=== PATIENT | male | born 1990 | race Hispanic/Latino ===

== ENCOUNTER 2016-11-05 17:15 | Inpatient (IN) | payer MEDICARE ==
[~2016-11-05 17:15] MED LIST: ATIVAN ONE
[2016-11-05] MEDS ORDERED: ATIVAN IV ONE (17:18)
[2016-11-05] MEDS ORDERED: NACL 0.9% 1000 ML 1,000 ML IV ONE (17:18)
[2016-11-05 17:44] LABS: Urine Drugs of Abuse Note Disclamer
--- NOTE | 2016-11-05 17:51 | Emergency Department Report ---
ED General Adult HPI - General Chief complaint: Altered Mental Status Stated complaint: SEIZURE Time Seen by Provider: 11/05/16 17:17 Source: patient Mode of arrival: Wheelchair Limitations: No Limitations - History of Present Illness Initial comments: 25-year-old male presents to the emergency department via private vehicle after possible seizure. Patient was found in the car to be unresponsive with agonal respirations. She was immediately brought back to the exam room. Patient was arousable and states he does not know what happened to him. He states he has been taking his prescribed medicine and denies taking any other medication. There are no other complaints. -: Sudden, This afternoon - Related Data Allergies Allergy/AdvReac Type Severity Reaction Status Date / Time Sulfa (Sulfonamide Allergy Anaphylaxis Verified 11/05/16 17:16 Antibiotics) ED Review of Systems ROS: Stated complaint: SEIZURE Other details as noted in HPI Comment: Unobtainable due to pts medical conditions (altered mental status) ED Past Medical Hx - Past Medical History Previous Medical History?: Yes Hx Seizures: Yes Additional medical history: TBI 2008 - Surgical History Past Surgical History?: Yes Additional Surgical History: brain 2009. trach 2009 - Social History Smoking Status: Never Smoker Substance Use Type: None ED Physical Exam - General Limitations: No Limitations General appearance: lethargic - Head Head exam: Present: normocephalic, other (Healed surgical scars noted to right forehead and temporal region) - Eye Eye exam: Present: normal appearance, PERRL, EOMI - ENT ENT exam: Present: normal exam, normal orophraynx, mucous membranes moist - Neck Neck exam: Present: full ROM, other (old tracheostomy scar noted). Absent: tenderness - Respiratory Respiratory exam: Present: normal lung sounds bilaterally. Absent: respiratory distress - Cardiovascular Cardiovascular Exam: Present: normal rhythm, tachycardia, normal heart sounds - GI/Abdominal GI/Abdominal exam: Present: soft, normal bowel sounds. Absent: distended, tenderness - Extremities Exam Extremities exam: Present: normal inspection, full ROM. Absent: tenderness - Back Exam Back exam: Present: normal inspection, full ROM. Absent: tenderness - Neurological Exam Neurological exam: Present: alert, oriented X3. Absent: motor sensory deficit - Skin Skin exam: Present: warm, dry, intact ED Course Vital Signs 11/05/16 11/05/16 11/05/16 17:15 17:16 17:45 Temperature 97.9 F Pulse Rate 115 H 116 H 107 H Respiratory 10 L 10 L Rate Blood Pressure 143/92 Blood Pressure 145/85 [Left] O2 Sat by Pulse 97 95 97 Oximetry 11/05/16 19:36 Temperature Pulse Rate 102 H Respiratory 16 Rate Blood Pressure Blood Pressure 126/88 [Left] O2 Sat by Pulse 99 Oximetry - Reevaluation(s) Reevaluation #1: 11/05/16 17:50 Patient was initially given 2 mg of IV Ativan. No further seizure activity has been noted as yet. Obtaining labs and head CT. Will monitor and reassess. Reevaluation #2: 11/05/16 19:49 Additional history obtained from family via phone shows that the patient had been using heroin earlier today. Lab and imaging results been reviewed. Patient continues to require supplemental oxygen. On room air the patient will desaturate to 89%. Patient will be admitted by the hospitalist. ED Medical Decision Making - Lab Data Result diagrams: 11/05/16 18:00 11/05/16 18:00 - EKG Data -: EKG Interpreted by Me EKG shows normal: sinus rhythm, axis, intervals, ST-T waves Rate: tachycardia - EKG Data When compared to previous EKG there are: previous EKG unavailable Interpretation: normal EKG (incomplete RBBB) - Radiology Data Radiology results: report reviewed, image reviewed CT of the brain shows right cerebral encephalomalacia with ventriculostomy drain. No acute intracranial abnormality noted. - Differential Diagnosis seizure, ICH, drug use Critical care attestation.: If time is entered above; I have spent that time in minutes in the direct care of this critically ill patient, excluding procedure time. ED Disposition Clinical Impression: Hypoxia Accidental drug overdose Qualifiers: Encounter type: initial encounter Qualified Code(s): T50.901A - Poisoning by unspecified drugs, medicaments and biological substances, accidental ( unintentional), initial encounter Disposition: OP ADMITTED IP TO THIS HOSP Is pt being admited?: Yes Condition: Stable Referrals: PRIMARY CARE, [Primary Care Provider] - 3-5 Days Time of Disposition: 19:51
[2016-11-05 17:54] LABS: Bilirubin,Urine NEG (Negative); Blood,Urine NEG (Negative); Ketones,Urine NEG (Negative); Leukocyte Esterase,Urine NEG (Negative); Mucus,Urine FEW /HPF; Nitrite,Urine NEG (Negative); Urobilinogen,Urine < 2.0 mg/dL (<2.0)
[2016-11-05 18:09] LABS: Basophils % (Auto) 0.2 % (0.0-1.8); Eosinophils % (Auto) 0.2 % (0.0-4.3); Hemoglobin 15.5 gm/dl (11.8-15.2); Mean Corpuscular HGB Conc 33 % (32-34); Mean Corpuscular Hemoglobin 32 pg (28-32); Mean Corpuscular Volume 97 fl (84-94); Platelet Count 277 K/mm3 (140-440); Red Blood Count 4.87 M/mm3 (3.65-5.03); Red Cell Distribution Width 13.4 % (13.2-15.2); White Blood Count 14.9 K/mm3 (4.5-11.0)
[2016-11-05 18:33] LABS: Alanine Aminotransferase 56 units/L (7-56); Albumin 4.6 g/dL (3.9-5); Albumin/Globulin Ratio 1.5 %; Alkaline Phosphatase 107 units/L (35-129); Anion Gap 21 mmol/L; BUN/Creatinine Ratio 12.22; Bilirubin,Total 0.3 mg/dL (0.1-1.2); Blood Urea Nitrogen 11 mg/dL (9-20); Calcium 8.8 mg/dL (8.4-10.2); Carbon Dioxide 23 mmol/L (22-30); Chloride 97.4 mmol/L (98-107); Glucose 168 mg/dL (75-100); Potassium 4.1 mmol/L (3.6-5.0); Sodium 137 mmol/L (137-145); Total Protein 7.6 g/dL (6.3-8.2)
--- NOTE | 2016-11-05 18:55 | Cat Scan Report ---
FINAL REPORT EXAM: CT HEAD/BRAIN WO CON HISTORY: Seizure TECHNIQUE: CT was performed from the foramen magnum through the vertex in the axial plane without the use of intravenous contrast. PRIORS: None. FINDINGS: There is been a large coyuwf-whprzvje-lufjtzbo right craniotomy. A surgical plate is in place covering the brain, replacing the removed bone. A ventriculostomy tube enters the right posterior parietal area and ends in the frontal right lateral ventricle. There is diffuse encephalomalacia involving the right frontal, parietal and temporal lobes. There is the right lateral ventricle is markedly dilated. There is small area of encephalomalacia in the medial left frontal lobe. There is no layering degeneration of the right cerebral peduncle. There is no evidence of acute intracranial hemorrhage. The orbits are unremarkable. The visualized paranasal sinuses are clear. IMPRESSION: Postsurgical changes of the right cerebral hemisphere with associated encephalomalacia and dilated lateral ventricle. There is no evidence of acute intracranial hemorrhage. Recommend comparison with previous head CTs to determine interval change.
--- NOTE | 2016-11-05 20:08 | Admit Criteria Form ---
Admission Criteria Documentation: DRUG INGESTION OR OVERDOSE Clinical Indications for Admission to Inpatient Care ( Place 'X' for any and all applicable criteria): Admission is indicated for severe toxicity as indicated by ANY ONE of the following(1)(2)(3)(4)(5)(6): [X ]I. Inpatient admission required rather than observation care (Also use Drug Ingestion or Overdose: Observation Care guideline as appropriate) because of ANY ONE of the following: [ ]a) Altered mental status that is severe or persistent [ ]b) Clinical finding (eg, metabolic acidosis, hypoglycemia, bradycardia) that is severe or persistent [ ]c) Toxic drug level that is persistent [ ]d) Psychiatric risk status not acceptable for outpatient management [ ]e) Continuous intravenous infusion of anticoagulation, platelet inhibitor, vasoactive, or antiarrhythmic medication (15)(16) [X ]f) Other condition, treatment or monitoring requiring inpatient admission [ ]II. Respiratory abnormalities [ ]III. Specific finding indicating severe and likely prolonged drug toxicity [ ]IV. Hemodynamic instability [ ]V. Dangerous arrhythmia [ ]. Hypertension requiring inpatient treatment Extended stay beyond goal length of stay may be needed for (4): [ ]a) Neurologic or respiratory compromise [ ]b) Hemodynamic instability [ ]c) Persistent toxic drug levels (25) [ ]d) Severe drug toxicities or complications [ ]e) Ongoing antidote treatment (eg, acetaminophen overdose)(5) [ ]f) Older patients(65 years or older) The original [employer] content created by [employer] has been revised. The portions of the content which have been revised are identified through the use of italic text or in bold, and [facility] has neither reviewed nor approved the modified material. All other unmodified content is copyright [facility] [employer]. Please see references footnoted in the original [facility] [employer] [facility] edition 2016 Admission Criteria Met: Yes
[2016-11-05 23:02] VITALS: BP 127/86
== END 2016-11-05 23:00 | disposition left against medical advice (07) | DRG 918 ==
LOC: ED 17:15 → 4A 19:52
PROVIDERS: ADMIT Internal Medicine; ATTEND Internal Medicine
DX: T50.901A Poisoning by unspecified drugs, medicaments and biological substances, accidental (unintentional), initial encounter (principal); R09.02 Hypoxemia; Z88.2 Allergy status to sulfonamides; Z53.21 Procedure and treatment not carried out due to patient leaving prior to being seen by health care provider
CPT/HCPCS: 36415; 70450; 80053; 80307; 81001; 85025; 93005; 93010; 94760; J2060; J7030